=== PATIENT | female | born 1965 | race Caucasian/White ===

== ENCOUNTER 2021-07-19 18:38 | Emergency (ER) | payer OTHER ==
[~2021-07-19] VITALS: Ht 165.1 cm; Wt 104.3 kg
[2021-07-19] MEDS ORDERED: MORPHINE SULFATE 10 MG/ML SYRINGE. IV ONE (19:30)
[2021-07-19] MEDS ORDERED: MORPHINE SULFATE 10 MG/ML SYRINGE. SQ ONE (20:00)
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
[2021-07-19 20:35] LABS: BASO # 0.1 x10^3/uL (0.0-0.2); BASO % 1 % (0-3); EOS # 0.2 x10^3/uL (0.0-0.7); EOS % 2 % (0-3); HEMATOCRIT 39.7 % (36.0-47.0); HEMOGLOBIN 13.2 g/dL (12.0-15.5); LYMPH # 2.7 x10^3/uL (1.0-4.8); LYMPH % 22 % (24-48); MEAN CORPUSCULAR HEMOGLOBIN 31 pg (25-35); MEAN CORPUSCULAR HGB CONC 33 g/dL (31-37); MEAN CORPUSCULAR VOLUME 92 fL (79-100); MONO # 0.8 x10^3/uL (0.0-1.1); MONO % 7 % (0-9); NEUT # 8.3 x10^3uL (1.8-7.7); NEUT % 69 % (31-73); PLATELET COUNT 347 x10^3/uL (140-400); RED BLOOD COUNT 4.33 x10^6/uL (3.50-5.40); RED CELL DISTRIBUTION WIDTH 15.3 % (11.5-14.5)
[2021-07-19 20:38] LABS: CALCIUM 9.5 mg/dL (8.5-10.1); CREATININE 0.8 mg/dL (0.6-1.0); GFR 74.5; POTASSIUM 4.1 mmol/L (3.5-5.1)
[2021-07-19 20:41] LABS: BARBITURATES NEG (NEG); BENZODIAZEPINES NEG (NEG); CANNABINOIDS NEG (NEG); COCAINE NEG (NEG); METHADONE NEG (NEG); OPIATES NEG (NEG); PHENCYCLIDINE NEG (NEG)
[2021-07-19 20:42] LABS: ALBUMIN 3.7 g/dL (3.4-5.0); ALBUMIN/GLOBULIN RATIO 0.9 (1.0-1.7); TOTAL BILIRUBIN 0.3 mg/dL (0.2-1.0); TOTAL PROTEIN 7.7 g/dL (6.4-8.2)
[2021-07-19 20:49] LABS: AMPHETAMINE/METHAMPHETAMINE NEG (NEG)
[2021-07-19 21:01] LABS: BILIRUBIN,URINE NEG (NEG); CLARITY,URINE CLEAR; COLOR,URINE YELLOW; GLUCOSE,URINE NEG (NEG); NITRITE,URINE NEG (NEG); UROBILINOGEN,URINE 0.2 mg/dL (0.2 mg/dL)
[2021-07-19 21:02] LABS: BACTERIA,URINE 0 /HPF (0-FEW); RBC,URINE 0 /HPF (0-2); SQUAMOUS EPITHELIAL CELL,UR FEW /LPF
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
[2021-07-19] MEDS ORDERED: IBUP600T16 PO (22:06)
[2021-07-19] MEDS ORDERED: ORPH-16 PO (22:06)
[2021-07-19] MEDS ORDERED: IBUPROFEN 800 MG TABLET. PO ONE (22:34)
[2021-07-19 22:40] VITALS: BP 138/81
[2021-07-19] MEDS ORDERED: IBUPROFEN 400 MG TABLET. PO ONE (22:45)
[2021-07-19] MEDS ORDERED: CYCLOBENZAPRINE 10MG 4TABLET STARTPACK PO ONE (22:45)
== END 2021-07-19 22:50 | disposition home or self-care (01) ==
LOC: ER 18:38
DX: S60.221A Contusion of right hand, initial encounter (principal); S20.213A Contusion of bilateral front wall of thorax, initial encounter; E11.9 Type 2 diabetes mellitus without complications; I10 Essential (primary) hypertension; V53.5XXA Driver of pick-up truck or van injured in collision with car, pick-up truck or van in traffic accident, initial encounter; Y93.89 Activity, other specified; Y92.410 Unspecified street and highway as the place of occurrence of the external cause; Y99.8 Other external cause status
CPT/HCPCS: 36415; 71046; 73090; 73130; 80053; 80307; 81001; 85025; 96372; 99284; J2270